=== PATIENT | male | born 1980 ===

== ENCOUNTER 2025-02-20 06:22 | Day surgery (SDC) | payer BC, SELFPAY | END 2025-02-20 12:08 | disposition home or self-care (01) | LOC: GI 06:22 | PROVIDERS: ATTENDING PHYSICIAN Internal Medicine | DX: Z12.11 Encounter for screening for malignant neoplasm of colon (principal); K64.8 Other hemorrhoids; R13.10 Dysphagia, unspecified; K22.89 Other specified disease of esophagus; K63.5 Polyp of colon; K62.1 Rectal polyp | CPT/HCPCS: 43249; 45385; 45380; 43239; 88305; 88342 ==